=== PATIENT | female | born 1980 | race Hispanic/Latino ===

== ENCOUNTER 2023-11-24 16:50 | Day surgery (SDC) | payer OTHER, SELFPAY ==
[2023-11-24] VITALS (10 sets, daily range): BP systolic 139–165; BP diastolic 82–105
[2023-11-24] MEDS: TORADOL 15 MG IV (12:16)
[2023-11-24] MEDS: NSS 1000 IV (12:17)
--- NOTE | 2023-11-24 12:29 | ED.GENMED ---
History of Present Illness
General
Chief Complaint: Headache
Source: patient
Time Seen by Provider: 11/24/23 12:01
History of Present Illness
History of Present Illness:
43-year-old female presents to the emergency room complaining of headache. Patient had a myelogram performed at [place] on Friday. Since that time she has had significant headache particular when she stands or sits up. Headaches associate with
nausea. She has not vomited. No focal weakness numbness or tingling.
Past History
Past History
ED Past Medical History: None
ED Past Surgical History: and Gynecological
Patient has exhibited threatening behavior?: No
PSI?: No
Social History
Tobacco: Former smoker
Personal:
Living: with family
Family History
Family History: CAD; Negative Early CAD
Phy Exam
Physical Exam
Physical Exam:
General: Awake, Alert, Oriented X3. No acute distress.
Vitals: unremarkable
Head: Atraumatic
Eyes: Pupils equal, EOMI
Throat: Airway intact, no exudates
Neck: Trachea midline
Lungs: Clear and equal b/l
Heart: Regular rate, no murmurs
Abd: Soft, Nontender, No pulsatile mass
Neuro: Cranial nerves intact, muscle strength equal bilaterally
Skin: Warm, dry, no rash
Extremities: pulses equal b/l, no edema
Course
Orders/Labs/Results
Orders:
Orders
11/24/23 12:09
0.9% Sodium Chloride 1000 ml [Nss] 1,000 ml IV BOLUS
Ketorolac [Toradol] 15 mg IV NOW STA
11/24/23 12:10
Test Result ONCE
11/24/23 12:15
Add On- LAB Urgent
Tests Added?: hcg qual. serum
11/24/23 12:18
Basic Metabolic Panel Urgent
Complete Blood Count/With Diff Urgent
HCG, Serum Qualitative Screen Urgent
Comment: ADD ON
11/24/23 12:35
CT Head W/o Iv Contrast Urgent
Comment:
Reason For Exam: headache
11/24/23 15:20
Diphenhydramine [Benadryl] 25 mg IV NOW STA
Prochlorperazine [Compazine] 10 mg IV NOW STA
11/24/23 16:51
HYDROmorphone [Dilaudid] 0.25 mg IV PACU-[id number] PRN
Morphine Sulfate 1 mg IV PACU-Q5MPRN PRN
Ondansetron Injectable [Zofran] 4 mg IV PACU-ONCEPRN PRN
Notify MD As Directed
Notify physician if: for SDS patients with known or suspected sleep obstructive sleep apnea, monitor in the
PACU.
Notify MD for any apneic/desaturation episodes
O2 Therapy [RESP] Urgent
Titrate/Wean O2 to maintain O2 sat greater than (%): 92
Special Instructions: -Provide supplemental oxygen to achieve O2 sat of 92% or greater.
-After 15 min, may wean O2 and discontinue if patient is able to maintain O2 sat of 92%
or greater during recovery period.
If patient is a discharge home, without oxygen therapy, notify anestheiologist if
unable to maintain O2 SAT of 92% or greater on room air for MD clearance.
11/24/23 17:00
Acetaminophen [Tylenol] 650 mg PO [id number] PRN
Normosol (Mult Electrolytes) [Normosol-R/Plasmalyte-A] 1,000 ml IV PER PROTOCOL
Abnormal Lab Results
11/24/23
12:18
Hgb 9.9 L g/dL
(12.0-16.0)
Hct 31.4 L %
(37.0-47.0)
MCV 71.0 L fL
(81.0-99.0)
MCH 22.4 L pg
(27.0-31.0)
MCHC 31.5 L g/dL
(33.0-37.0)
RDW 18.3 H %
(11.5-14.5)
Creatinine 0.5 L mg/dL
(0.6-1.0)
Glucose 157 H mg/dl
(70-99)
11/24/23 12:18
11/24/23 12:18
Vital Signs
Initial and Last Documented VS:
Initial Vital Signs
Temp Pulse Resp BP Pulse Ox
98.4 F 71 22 165/105 97
11/24/23 11:01 11/24/23 11:01 11/24/23 11:01 11/24/23 11:01 11/24/23 11:01
Last Documented Vital Signs
Temp Pulse Resp BP Pulse Ox
98.0 F 66 16 157/94 100
11/24/23 17:25 11/24/23 17:54 11/24/23 17:54 11/24/23 17:54 11/24/23 17:54
MDM/Problems Addressed
Differential Diagnosis Includes:
migraine, tension headache, post-dural puncture headache
MDM/Problems Addressed:
Patient presents with headache since having a myelogram performed couple days ago. Headache is much worse with sitting up or standing up. She has associated nausea. Patient has had migraines in the past and typically has photophobia associated
with the migraine headaches. She does not have any photophobia today. Patient had a post dural puncture headache in the past after childbirth. This feels exactly the same as that. No improvement with IV fluids and Toradol. Discussed having a
blood patch performed by anesthesia. They will be happy to do so and asked the patient be transferred to PACU. Patient signed out to Dr. Rich Ortiz in case the patient returned from PACU after the procedure.
*Critical Care Note
Total Time (30-74mins, 75-104mins- exclusive of procedures): Not Applicable
ED Attending Note
-
Portions of this chart may have been created with voice recognition software.� Occasional wrong word or��sound alike� substitutions may have occurred due to the inherent limitations of voice recognition software.
Discharge Plan
Departure
Patient Disposition: OR
Date of Disposition: 11/24/23
Time of Disposition: 15:30
Presentation/result/management discussed w/ accepting MD/DO: Dr. Guerin/Anesthesia
Condition: Fair
Discharge Problem:
Post-dural puncture headache
Interventions
Interventions:
*Risk Screen - Suicide Last Done: 11/24/23 11:08
*General Assessment Last Done: 11/24/23 11:26
*Neglect/Abuse Screening Last Done: 11/24/23 11:08
ED- Fall Risk Assessment Last Done: 11/24/23 11:26
*ED COVID-19 Vaccine History Last Done: 11/24/23 16:08
*Nursing Disposition Last Done: 11/24/23 16:08
ED- Neurological Assessment Last Done: 11/24/23 11:26
[2023-11-24 12:47] LABS: % Basophils 0.6 % (0-2); % Eosinophils 0.6 % (0-6); % Immature Granulocytes 0.4 % (0-0.5); % Lymphocytes 20.7 % (20.5-51.1); % Monocytes 4.6 % (1.7-9.3); % Neutrophils 73.1 % (42.2-75.2); Absolute Basophils 0.1 10^3/uL (0-0.2); Absolute Eosinophils 0.1 10^3/uL (0-0.7); Absolute Lymphocytes 1.8 10^3/uL (1.2-3.4); Absolute Monocytes 0.4 10^3/uL (0.1-0.6); Absolute Neutrophils 6.5 10^3/uL (1.4-6.5); Hematocrit 31.4 % (37.0-47.0); Hemoglobin 9.9 g/dL (12.0-16.0); Mean Corp Hgb Conc. 31.5 g/dL (33.0-37.0); Mean Corpuscular Hgb 22.4 pg (27.0-31.0); Mean Platelet Volume 10.2 fL (7.4-10.4); Nucleated Red Blood Cells % 0 %; Platelet Count 334 10^3/uL (130-400); Red Blood Cell Count 4.42 10^6/uL (4.20-5.40); Red Cell Dist. Width 18.3 % (11.5-14.5); White Blood Cell Count 8.9 10^3/uL (4.8-10.8)
[2023-11-24 12:57] LABS: HCG, Serum Qualitative Screen Negative
[2023-11-24 12:59] LABS: Blood Urea Nitrogen 13 mg/dl (7-17); Calcium 8.8 mg/dl (8.4-10.2); Carbon Dioxide 24 mmol/L (22-30); Chloride 104 mmol/L (98-107); Glucose 157 mg/dl (70-99); Potassium 3.5 mmol/L (3.5-5.1); Sodium 141 mmol/L (135-145); eGFR > 60.00
[2023-11-24] MEDS: ZOFRAN 4 MG IV (16:59)
== END 2023-11-24 18:08 | disposition home or self-care (01) ==
LOC: SDS 16:50
PROVIDERS: ATTENDING PHYSICIAN Anesthesiology; EMERGENCY PHYSICIAN Emergency Medicine; FAMILY PHYSICIAN Internal Medicine
DX: Y84.4 Aspiration of fluid as the cause of abnormal reaction of the patient, or of later complication, without mention of misadventure at the time of the procedure (principal); G97.1 Other reaction to spinal and lumbar puncture
CPT/HCPCS: 62273; 70450; 80048; 84703; 85025; 96361; 96374; 99285